=== PATIENT | male | born 1970 | race Caucasian/White ===

== ENCOUNTER 2017-04-20 12:55 | Emergency (ER) | payer BC, MEDICAID, SELFPAY ==
[~2017-04-20] VITALS: Ht 177.8 cm; Wt 109.1 kg
[2017-04-20] MEDS ORDERED: OXYcodone/APAP 5/325MG TABLET PO ONE (13:30)
[2017-04-20] MEDS ORDERED: KETOROLAC 30 MG/1 ML IM ONE (13:30)
[2017-04-20] MEDS ORDERED: KETOROLAC 30 MG/1 ML ONE (13:33)
[2017-04-20] MEDS ORDERED: OXYcodone/APAP 5/325MG TABLET ONE (13:33)
[2017-04-20] MEDS ORDERED: SODIUM CHLORIDE FLUSH 10ML SYR IVF ONE (14:30)
[2017-04-20 14:48] LABS: BLOOD UREA NITROGEN 19 mg/dL (7-18)
[2017-04-20] MEDS ORDERED: OMNIPAQUE 350 MG/ML, 100ML BOTTLE ONE (15:34)
[2017-04-20 15:53] VITALS: BP 131/74
[2017-04-20] MEDS ORDERED: SODIUM CHLORIDE 0.9% 1,000ML IVBOLUS ONE (16:00)
== END 2017-04-20 16:36 | disposition home or self-care (01) ==
LOC: ED 16:10
DX: R07.89 Other chest pain (principal); R09.1 Pleurisy; J15.9 Unspecified bacterial pneumonia; E11.9 Type 2 diabetes mellitus without complications; J45.909 Unspecified asthma, uncomplicated; I10 Essential (primary) hypertension; Z87.891 Personal history of nicotine dependence
CPT/HCPCS: 36415; 71020; 71275; 80048; 82040; 93005; 96360; 96361; 96372; 99285; J1885; J7030; Q9967